=== PATIENT | male | born 1990 | race Caucasian/White ===

== ENCOUNTER 2019-07-25 17:14 | Emergency (ER) | payer OTHER ==
[~2019-07-25] VITALS: Ht 185.4 cm; Wt 99.8 kg
[2019-07-25 17:29] VITALS: BP 122/96
[2019-07-25] MEDS ORDERED: LIDOCAINE 1%/EPI 1:100,000 20 ML VIAL. ONE (17:40)
--- NOTE | 2019-07-25 18:53 | PHYS DOC ---
Past History Past Medical History: Hypertension Additional Past Medical Histor: bicupsid aortic valve, tachycardia Past Surgical History: No Surgical History Alcohol Use: Occasionally Drug Use: None Adult General Chief Complaint Chief Complaint: LACERATION/AVULSION HPI HPI Patient is a 28 year old male who presents with complaint of left hand laceration. The patient states that he accidentally cut the palm of his hand with a kitchen knife shortly prior to arrival. Bleeding was controlled prior to arrival. Patient states that he is able to move all of his fingers normally on the left hand. Is not up-to-date on tetanus immunization. Denies any other injuries. Review of Systems Review of Systems Constitutional: Denies fever or chills [] Musculoskeletal: Denies back pain or joint pain [] Integument: Left hand laceration[] Neurologic: Denies headache, focal weakness or sensory changes [] All other systems were reviewed and found to be within normal limits, except as documented in this note. Current Medications Current Medications Current Medications Medications (Trade) Dose Ordered Sig/Berna Start Time Stop Time Status Last Admin Dose Admin Diphtheria/ Tetanus/Acell Pertussis (Boostrix) 0.5 ml ONCE ONCE 07/25/19 19:00 07/25/19 19:01 07/25/19 18:46 0.5 ML Lidocaine/ Epinephrine (Xylocaine 1%-Epi 1:100,000) 20 ml STK-MED ONCE 07/25/19 17:40 07/25/19 17:40 DC Allergies Allergies Allergies Coded Allergies Type Severity Reaction Last Updated Verified erythromycin base Allergy Unknown 07/25/19 Yes sulfisoxazole Allergy Unknown 07/25/19 Yes Physical Exam Physical Exam Constitutional: Well developed, well nourished, no acute distress, non-toxic appearance. [] Skin: Warm, dry, no erythema, 3.5 cm longitudinal laceration overlying left thenar eminence of left hand with exposed adipose tissue, no exposed tendon or muscle body. [] Extremities: No tenderness, no cyanosis, no clubbing, ROM intact, no edema. [] Neurologic: Alert and oriented X 3, normal motor function, normal sensory function, no focal deficits noted. [] Current Patient Data Vital Signs Vital Signs Date Time Temp Pulse Resp B/P (MAP) Pulse Ox O2 Delivery O2 Flow Rate FiO2 07/25/19 17:29 97.9 128 16 95 Room Air Lab Results Not performed EKG EKG Not performed[] Radiology/Procedures Radiology/Procedures Indication: Left hand laceration Procedure: The patient was placed in the appropriate position and anesthesia around the laceration was achieved with injection of lidocaine 1% with epinephrine. The area was then cleansed with chlorhexidine soap and irrigated copiously with tap water. The laceration was closed using simple interrupted 4-0 Ethilon sutures. The wound area was left open with no bandage. Total repaired wound length: 3.5 cm. Other Items: Total suture count: 5 The patient tolerated the procedure without difficulty. Complications: None.[] Course & Med Decision Making Course & Med Decision Making Pertinent Labs and Imaging studies reviewed. (See chart for details) Laceration was repaired as outlined in procedure note. Advised follow-up in 10- 14 days with primary doctor for removal of sutures. Tetanus immunization was updated in the emergency department. Advised return to emergency department for any worsening symptoms. Patient was understanding and in agreement with treatment plan.[] Dragon Disclaimer Dragon Disclaimer This electronic medical record was generated, in whole or in part, using a voice recognition dictation system. Departure Departure: Impression: Primary Impression: Hand laceration Disposition: 01 HOME, SELF-CARE Condition: IMPROVED Patient Instructions: Laceration Care, Adult Additional Instructions: Follow-up with your primary doctor in 10-14 days for removal of sutures. Return to the emergency department for any worsening symptoms. Problem Qualifiers Primary Impression: Hand laceration Encounter type: initial encounter Foreign body presence: unspecified Laterality: left Qualified Codes: S61.412A - Laceration without foreign body of left hand, initial encounter NAIF HAYWOOD MD Jul 25, 2019 18:53
[2019-07-25] MEDS ORDERED: DIPHTH,PERTUSS(ACELL),TET TOX 0.5 ML DISP.SYRIN. VAX IM ONE (19:00)
== END 2019-07-25 18:50 | disposition home or self-care (01) ==
LOC: ER 17:14
DX: S61.412A Laceration without foreign body of left hand, initial encounter (principal); I10 Essential (primary) hypertension; Z88.1 Allergy status to other antibiotic agents; Z88.2 Allergy status to sulfonamides; W26.0XXA Contact with knife, initial encounter; Y93.89 Activity, other specified; Y92.89 Other specified places as the place of occurrence of the external cause; Y99.8 Other external cause status
CPT/HCPCS: 12002; 90471; 90715; 99283-25